=== PATIENT | female | born 1970 | race African-American/Black ===

== ENCOUNTER 2017-08-21 19:06 | Emergency (ER) | payer OTHER ==
[~2017-08-21] VITALS: Ht 160 cm; Wt 67.6 kg
[2017-08-21 20:29] LABS: Source, Urine Clean Catch
[2017-08-21 20:31] LABS: Blood, Urine 2+ (Neg); Glucose Qualitative, Urine Neg (Neg); Ketones, Urine Neg (Neg); Leukocyte Esterase, Urine 3+ (Neg); Nitrite, Urine Neg (Neg); Protein, Urine 2+ (Neg); Specific Gravity, Urine 1.025 (1.003-1.022); Urobilinogen, Urine NORM (Normal)
[2017-08-21 20:39] LABS: Appearance, Urine Cloudy (Clear); Bilirubin, Urine 2+ (Neg); Color, Urine Yellow (P-Yellow)
[2017-08-21 20:40] LABS: Bacteria Mod /hpf; Red Blood Cells, Urine 0-2 /hpf (0-2); Squamous Epithelial Cells Mod /hpf (Few); White Blood Cells, Urine TNTC /hpf (0-5)
[2017-08-21] MEDS ORDERED: Amoxicillin875 MG PO (20:47)
[2017-08-21] MEDS ORDERED: Pyridium200 MG PO (20:47)
[2017-08-21] MEDS ORDERED: FLANAX220 MG PO (20:47)
== END 2017-08-21 21:05 | disposition home or self-care (01) ==
LOC: ER 19:06
PROVIDERS: Physician Assistant
DX: K08.89 Other specified disorders of teeth and supporting structures (principal); I10 Essential (primary) hypertension; F17.200 Nicotine dependence, unspecified, uncomplicated
CPT/HCPCS: 81001; 81025; 87077; 87086; 87186; 99283